=== PATIENT | female | born 1945 | race Caucasian/White ===

== ENCOUNTER 2021-04-12 10:00 | Emergency (ER) | payer OTHER ==
--- NOTE | ~2021-04-12 | EMS ---
[address] [address] EMS Patient Care Report Name: KEV MARINELLI Room #: DEP RODNEY Aguiar#: [id number] Admission: 04/12/21 Attend Phys: Discharge: 04/12/21 Date of : 43 Report #: [id number] THIS REPORT FOR: //name// Report Transmitted: 04/14/2021 14:11 EMS Care Summary [place], [place]/[facility] Incident [id number] @ 04/12/2021 09:09 Incident Location [address] [place], [place] [id number] Patient KEV MARINELLI Female, 75 Years 1945 Patient Address [address] [place] [address] Patient History Hypertension (HTN), Patient Allergies No known allergies, Patient Medications Buspar, Atorvastatin, Amlodipine, Potassium, Furosemide, Chief Complaint SOA, palpitations, anxiety Disposition Transported No Lights/[place] Dispatch Reason Heart Problems/AICD Transported To [facility] Narrative Arrived on scene after P8. Pt was found standing talking to Pumper Crew. Pt states her social studies teacher must of called 911. Pt states she woke up with SOA, [facility] [address] [place] [address] EMS Patient Care Report Name: KEV MARINELLI Room #: DEP Stefania#: [id number] Admission: 04/12/21 Attend Phys: Discharge: 04/12/21 Date of : 43 Report #: [id number] heart palpitations. Pt states she wants transported to [facility]. Pt denies any other medical complaints. Pt denies any injuries. Arrived on scene after P8. Pt was found standing talking to [employer]umper [employer]. Pt was in no obvious distress. Pt had no obvious injuries. Pt was ambulatory on scene. Pt was treated and transported to [facility]. 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 Initial Vitals @09:28P: 79,R: 12,BP: 198/106,Pain: 0/10,GCS: 15,CO: 1,SpO2: 94,Revised Trauma: 12, @09:27P: 83,R: 12,BP: 187/97,Pain: 0/10,GCS: 15,SpO2: 94,Revised Trauma: 12,[place] Suspected: false Assessments @09:35MENTAL:Time Oriented,Event Oriented,Person Oriented,Place Oriented,SKIN:HEENT:Eyes: Right Pupil: 4-mm,Eyes: Left Pupil: 4-mm,Head/Face: No Abnormalities,Neck/Airway: No Abnormalities,LUNG SOUNDS:General: No Abnormalities,ABDOMEN:General: No Abnormalities,PELVIS//GI:No Abnormalities,EXTREMITIES:Capillary Refill: Right Upper: < 2 Sec,Left Arm: No Abnormalities,Right Arm: No Abnormalities,Left Leg: No Abnormalities,Right Leg: No Abnormalities,PULSE:Radial: 2+ Normal,NEURO:No Abnormalities, Impression Behavioral/psychiatric episode Procedures @09:32 ALS Assessment Response: UnchangedSucceeded Timeline 09:04,Call Received 09:04,Dispatch Notified 09:09,Dispatched 09:09,En Route 09:14,On Scene 09:15,At Patient 09:27,BP: 187/97 M,PULSE: 83,RR: 12 R,SPO2: 94 Ox,ETCO2: ,BG: ,PAIN: 0,GCS: 15, 09:28,Depart Scene 09:28,BP: 198/106 M,PULSE: 79,RR: 12 R,SPO2: 94 Ox,ETCO2: ,BG: ,PAIN: 0,GCS: 15, 09:32,ALS Assessment,Response: UnchangedSucceeded, 09:56,At Destination 10:02,Call Closed Disclaimer [facility] [address] [place] [address] EMS Patient Care Report Name: KEV MARINELLI Room #: [facility] Stefania#: [id number] Admission: 04/12/21 Attend Phys: Discharge: 04/12/21 Date of : 43 Report #: [id number] v1.1 Copyright 2020 [employer] This EMS Care Summary contains data elements from the applicable legal record (which may be displayed differently). It is designed to provide pertinent information for the following purposes: continuity of care, clinical quality, and state data reporting. The complete legal record is available to ED staff and administrators of the receiving hospital in [employer] Patient Tracker. All data is provided "as is."
[~2021-04-12 10:00] MED LIST: ALPRAZOLAM 0.50.5 MG PO; BUSPAR30 MG PO; CELEXA40 MG PO; HCTZ; LISINOPRIL40 MG PO; NIFEDIPINE ER30 M1 PO; PULMICORT FLE180 MCG IH; SINGULAIR 10 MG10 M1 PO; WELLBUTRIN XL150 M1 PO; ZOFRAN ODT4 MG PO
[2021-04-12 10:35] LABS: ABSOLUTE NEUTROPHILS 3.2 thou/uL (1.4-8.2); BASOPHILS 1.3 % (0.0-2.0); EOSINOPHILS 1.9 % (0.0-3.0); HEMATOCRIT 37.7 % (37.0-47.0); HEMOGLOBIN 12.4 gm/dL (12.0-15.0); LYMPHOCYTES 26.7 % (24.0-44.0); MCH 29.7 pg (26.0-34.0); MCV 89.9 fL (80.0-100.0); MONOCYTES 7.9 % (1.0-8.0); PLATELET COUNT 205 thou/uL (150-400); POLYS 62.2 % (36.0-66.0); RBC 4.19 mil/uL (4.20-5.00); RDW 13.6 % (10.5-14.5); WBC 5.2 thou/uL (4.0-11.0)
[2021-04-12 10:43] LABS: CALCIUM 9.4 mg/dL (8.5-10.1); CREATININE 1.2 mg/dL (0.6-1.0); POTASSIUM 3.7 mmol/L (3.5-5.1)
[2021-04-12] MEDS ORDERED: CLONIDINE HCL0.1 M1 PO (13:44)
[2021-04-12] MEDS ORDERED: XANAX 0.25 MG0.25 MG PO (13:44)
--- NOTE | 2021-04-13 07:14 | EKG ---
[facility] [place] [address] ELECTROCARDIOGRAM REPORT Name: KEV MARINELLI [facility] [id number] Admission: 04/12/21 Attend Phys: Discharge: 04/12/21 Date of : 43 Report #: [id number] 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 : 1945 Requested By: Wang Jones Order Number: [id number] MD: Sunil Canales Measurements Intervals Supai Rate: 71 P: 20 MS: 187 QRS: -12 QRSD: 98 T: 33 QT: 421 QTc: 458 Interpretive Statements Sinus rhythm Left atrial enlargement Anteroseptal infarct, age indeterminate Compared to ECG 10/21/2006 12:23:11 Atrial abnormality now present Myocardial infarct finding now present Electronically Signed On 04-13-2021 7:14:01 [employer] REPA[employer] by Sunil Canales [email or web address] <ELECTRONICALLY SIGNED> By: Sunil Canales MD, [facility] 04/13/21 0714 [id number] Sunil Canales MD, FACC /EPI
== END 2021-04-12 15:36 | disposition home or self-care (01) ==
LOC: ER 10:00
PROVIDERS: Emergency Medicine
DX: I10 Essential (primary) hypertension (principal); Z20.822 Contact with and (suspected) exposure to COVID-19; I48.91 Unspecified atrial fibrillation; J45.909 Unspecified asthma, uncomplicated; F32.9 Major depressive disorder, single episode, unspecified; F41.9 Anxiety disorder, unspecified; M79.7 Fibromyalgia; Z79.891 Long term (current) use of opiate analgesic; Z79.1 Long term (current) use of non-steroidal anti-inflammatories (NSAID); Z79.899 Other long term (current) drug therapy; Z88.6 Allergy status to analgesic agent; Z88.5 Allergy status to narcotic agent; Z91.041 Radiographic dye allergy status; Z88.8 Allergy status to other drugs, medicaments and biological substances